=== PATIENT | female | born 1945 | race Caucasian/White ===

== ENCOUNTER → 2016-06-07 | Outpatient (CLI) | payer OTHER, MEDICARE ==
[~2016-06-07] MED LIST: ACET1TAB84 PO; ADVIN10/60 INH; ALBU1AER9; CALCTAB5 PO; CITRICEL; CLR10 PO; FERR160T PO; MULT-506 PO; PANT40TA PO; POLY335019 PO; SERT-234 PO; SIMV40TA2 PO; TRIATAB3 PO; ZNTT/150 PO
--- NOTE | 2016-06-07 14:15 | DIAGNOSTIC IMAGING REPORT ---
LEFT LOWER EXTREMITY VENOUS DOPPLER HISTORY: LEFT LEG PAIN AND SWELLING, R/O DVT COMPARISON STUDY: None. FINDINGS: There is normal compressibility, flow, and augmentation within the left lower extremity deep venous system. There is a thin elongated popliteal cyst measuring up to 5 cm in length. IMPRESSION: No DVT within the left lower extremity. Electronically signed by: Clemente Mejia M.D. 06/07/2016 2:13 PM Dictated Date/Time: 06/07/2016 2:13 PM
== END | disposition home or self-care (01) ==
LOC: C.ULTR 13:29
PROVIDERS: ATTEND Nurse Practitioner
DX: M79.662 Pain in left lower leg (principal); M79.89 Other specified soft tissue disorders

== ENCOUNTER → 2016-06-07 | Outpatient (CLI) | payer OTHER, MEDICARE ==
--- NOTE | 2016-06-07 16:08 | DIAGNOSTIC IMAGING REPORT ---
LEFT TIBIA/FIBULA 2 VIEWS ROUTINE CLINICAL HISTORY: Left lower leg pain and swelling COMPARISON: None. DISCUSSION: No fractures or dislocations are visualized. No erosive or destructive changes are evident. IMPRESSION: No fractures, or destructive lesions are visualized. Electronically signed by: Daniel Calles M.D. 06/07/2016 4:06 PM Dictated Date/Time: 06/07/2016 4:06 PM
== END | disposition home or self-care (01) ==
LOC: C.LABPVFM 15:49
PROVIDERS: ATTEND Nurse Practitioner
DX: M79.89 Other specified soft tissue disorders (principal); M79.662 Pain in left lower leg

== ENCOUNTER → 2016-06-24 | Outpatient (CLI) | payer OTHER, MEDICARE ==
[2016-06-24 14:11] LABS: ALT/SGPT 21 U/L (12-78); BLOOD UREA NITROGEN 16 mg/dl (7-18); BUN/CREATININE RATIO 24.4 (10-20); CALCIUM 9.3 mg/dl (8.5-10.1); CARBON DIOXIDE 28 mmol/L (21-32); CHLORIDE 103 mmol/L (98-107); CHOLESTEROL 201 mg/dl (0-200); CREATININE 0.66 mg/dl (0.60-1.20); GLUCOSE 85 mg/dl (70-99); POTASSIUM 3.8 mmol/L (3.5-5.1); SODIUM 140 mmol/L (136-145)
[2016-06-24 14:24] LABS: ALB/GLOB RATIO 1.2 (0.9-2); ALKALINE PHOSPHATASE 109 U/L (45-117); AST/SGOT 18 U/L (15-37); CHOLESTEROL/HDL RATIO 2.3; HDL CHOLESTEROL 88 mg/dl; LDL CHOLESTEROL CALCULATED 73 mg/dl; TRIGLYCERIDES 200 mg/dl (0-150); VERY LOW DENSITY LIPOPROT CALC 40 mg/dl
== END | disposition home or self-care (01) ==
LOC: C.LABPVFM 11:04
PROVIDERS: ATTEND Family Medicine
DX: E78.5 Hyperlipidemia, unspecified (principal); I10 Essential (primary) hypertension

== ENCOUNTER → 2016-07-05 | Outpatient (CLI) | payer OTHER, MEDICARE ==
--- NOTE | 2016-07-05 14:09 | MAMMOGRAPHY REPORT ---
BILATERAL DIGITAL SCREENING MAMMOGRAM WITH CAD: 07/05/2016 CLINICAL HISTORY: Routine screening. Patient has no complaints. TECHNIQUE: Current study was also evaluated with a Computer Aided Detection (CAD) system. Bilatera l CC and MLO views were obtained. COMPARISON: Comparison is made to exams dated: 07/03/2015 mammogram, 07/01/2014 mammogram, 07/01/2014 ultrasound, 06/23/2014 mammogram, 06/22/2013 mammogram, and 06/16/2012 mammogram - [facility]. BREAST COMPOSITION: The tissue of both breasts is heterogeneously dense, which may obscure small ma sses. FINDINGS: No suspicious masses, calcifications, or areas of architectural distortion are noted in e ither breast. There has been no significant interval change compared to prior exams. Bilateral ashwin gn-appearing calcifications are not significantly changed. IMPRESSION: ACR BI-RADS CATEGORY 2: BENIGN There is no mammographic evidence of malignancy. A 1 year screening mammogram is recommended. The p atient will receive written notification of the results. Approximately 10% of breast cancers are not detected with mammography. A negative mammographic repor t should not delay biopsy if a clinically suggestive mass is present. Della Chacon M.D. /:07/05/2016 09:03:31 Shift Supervisor Melting: Iman ANDERSON(Inocencia)(Jamshid), [facility] letter sent: Normal 1/2 BI-RADS Code: ACR BI-RADS Category 2: Benign
== END | disposition home or self-care (01) ==
LOC: C.MAMM 08:15
PROVIDERS: ATTEND Obstetrics & Gynecology
DX: Z12.31 Encounter for screening mammogram for malignant neoplasm of breast (principal)

== ENCOUNTER → 2016-10-24 | Outpatient (CLI) | payer OTHER, MEDICARE | END | disposition home or self-care (01) | LOC: C.LABPVFM 10:08 | PROVIDERS: ATTEND Family Medicine | DX: Z11.59 Encounter for screening for other viral diseases (principal) ==

== ENCOUNTER → 2017-02-25 | Outpatient (CLI) | payer OTHER, MEDICARE ==
[2017-02-25 18:04] LABS: BLOOD UREA NITROGEN 13 mg/dl (7-18); BUN/CREATININE RATIO 18.7 (10-20); CARBON DIOXIDE 29 mmol/L (21-32); CHLORIDE 104 mmol/L (98-107); CREATININE 0.67 mg/dl (0.60-1.20); GLUCOSE 104 mg/dl (70-99); POTASSIUM 3.5 mmol/L (3.5-5.1); SODIUM 138 mmol/L (136-145)
[2017-02-25 18:08] LABS: CHOLESTEROL 226 mg/dl (0-200); CHOLESTEROL/HDL RATIO 3.1; HDL CHOLESTEROL 74 mg/dl; LDL CHOLESTEROL CALCULATED 108 mg/dl; TRIGLYCERIDES 221 mg/dl (0-150); VERY LOW DENSITY LIPOPROT CALC 44 mg/dl
== END | disposition home or self-care (01) ==
LOC: C.LABPVFM 15:02
PROVIDERS: ATTEND Family Medicine
DX: E78.5 Hyperlipidemia, unspecified (principal); I10 Essential (primary) hypertension

== ENCOUNTER → 2017-08-21 | Outpatient (CLI) | payer OTHER, MEDICARE ==
[~2017-08-21] MED LIST changes: +RANI150T85 PO; -ZNTT/150 PO
[2017-08-21 14:39] LABS: ALBUMIN 4.1 gm/dl (3.4-5.0); ALT/SGPT 21 U/L (12-78); BLOOD UREA NITROGEN 14 mg/dl (7-18); CALCIUM 9.2 mg/dl (8.5-10.1); CARBON DIOXIDE 28 mmol/L (21-32); CHOLESTEROL 210 mg/dl (0-200); CREATININE 0.69 mg/dl (0.60-1.20); GLUCOSE 92 mg/dl (70-99); SODIUM 138 mmol/L (136-145)
[2017-08-21 14:42] LABS: ALKALINE PHOSPHATASE 94 U/L (45-117); AST/SGOT 20 U/L (15-37); LDL CHOLESTEROL CALCULATED 109 mg/dl; TOTAL PROTEIN 7.5 gm/dl (6.4-8.2)
== END | disposition home or self-care (01) ==
LOC: C.LABPVFM 09:29
PROVIDERS: ATTEND Family Medicine
DX: E78.5 Hyperlipidemia, unspecified (principal)

== ENCOUNTER → 2017-09-09 | Outpatient (CLI) | payer OTHER, MEDICARE ==
--- NOTE | 2017-09-10 15:29 | MAMMOGRAPHY REPORT ---
BILATERAL DIGITAL SCREENING MAMMOGRAM TOMOSYNTHESIS WITH CAD: 09/09/2017 CLINICAL HISTORY: Routine screening. Patient has no complaints. TECHNIQUE: Breast tomosynthesis in addition to standard 2D mammography was performed. Current study was also evaluated with a Computer Aided Detection (CAD) system. COMPARISON: Comparison is made to exams dated: 07/05/2016 mammogram, 07/03/2015 mammogram, 06/23/2014 ma mmogram, 06/22/2013 mammogram, 06/16/2012 mammogram, and 06/11/2011 mammogram - [facility] ter. BREAST COMPOSITION: The tissue of both breasts is heterogeneously dense, which may obscure small mas ses. FINDINGS: There is stable asymmetry in the lateral left breast. Mild vascular calcifications and sca ttered benign-appearing round microcalcifications bilaterally. No new suspicious mass, architectural distortion or cluster of microcalcifications is seen. IMPRESSION: ACR BI-RADS CATEGORY 1: NEGATIVE There is no mammographic evidence of malignancy. A 1 year screening mammogram is recommended. The pa tient will receive written notification of the results. Approximately 10% of breast cancers are not detected with mammography. A negative mammographic report should not delay biopsy if a clinically suggestive mass is present. Cherrie Rodriguez M.D. ay/:09/09/2017 16:33:37 Hair Boiler Operator: Xi MOLINA)(Jamshid), [facility] letter sent: Normal 1/2 BI-RADS Code: ACR BI-RADS Category 1: Negative
== END | disposition home or self-care (01) ==
LOC: C.MAMM 13:45
PROVIDERS: ATTEND Obstetrics & Gynecology
DX: Z12.31 Encounter for screening mammogram for malignant neoplasm of breast (principal)

== ENCOUNTER → 2017-09-16 | Outpatient (CLI) | payer OTHER, MEDICARE | END | disposition home or self-care (01) | LOC: C.MAMM 13:13 | PROVIDERS: ATTEND Family Medicine | DX: M85.88 Other specified disorders of bone density and structure, other site (principal); M85.851 Other specified disorders of bone density and structure, right thigh; M85.852 Other specified disorders of bone density and structure, left thigh ==

== ENCOUNTER → 2017-12-18 | Outpatient (CLI) | payer OTHER, MEDICARE ==
[2017-12-18 12:59] LABS: ALKALINE PHOSPHATASE 100 U/L (45-117); ALT/SGPT 23 U/L (12-78); AST/SGOT 17 U/L (15-37); BLOOD UREA NITROGEN 17 mg/dl (7-18); CALCIUM 8.7 mg/dl (8.5-10.1); CARBON DIOXIDE 28 mmol/L (21-32); CHOLESTEROL 194 mg/dl (0-200); CREATININE 0.73 mg/dl (0.60-1.20); GLUCOSE 86 mg/dl (70-99); LDL CHOLESTEROL CALCULATED 97 mg/dl; SODIUM 137 mmol/L (136-145); TOTAL PROTEIN 7.5 gm/dl (6.4-8.2)
== END | disposition home or self-care (01) ==
LOC: C.LABPVFM 10:19
PROVIDERS: ATTEND Family Medicine
DX: E78.01 Familial hypercholesterolemia (principal); E55.9 Vitamin D deficiency, unspecified

== ENCOUNTER 2019-06-04 09:45 | Inpatient (IN) ==
--- NOTE | 2019-05-14 15:35 | PAT Medication Instructions ---
Medication Instructions Date of Service May 14, 2019 Home Medications Medication Instructions Recorded albuterol sulfate 90 mcg/actuation 2 puffs INH Q6H PRN #8.5 gm 01/07/19 aerosol inhaler albuterol sulfate 90 mcg/actuation aerosol inhaler 2 puffs INH Q6H PRN Calcium 600 + D(3) 1 cap PO HS Premarin 0.625 mg VAGINAL WK cholecalciferol (vitamin D3) 2,000 units PO QAM fluticasone propion-salmeterol [Advair Diskus] 1 puff INHALATION BID loratadine 10 mg PO DAILY PRN naproxen sodium [Aleve] 220 mg PO Q8H PRN pantoprazole 40 mg PO QAM polyethylene glycol 3350 17 gm PO QAM sennosides [Senokot] 8.6 mg PO HS sertraline 150 mg PO HS simvastatin 40 mg PO HS triamterene-hydrochlorothiazid 1 tab PO QAM melatonin 5 mg PO HS PRN multivitamin 1 cap PO QAM omeprazole 40 mg PO HS Continue as directed Premarin 0.625 mg VAGINAL WK ASK your surgeon for instructions naproxen sodium [Aleve] 220 mg PO Q8H PRN DO NOT take the morning of surgery cholecalciferol (vitamin D3) 2,000 units PO QAM loratadine 10 mg PO DAILY PRN polyethylene glycol 3350 17 gm PO QAM triamterene-hydrochlorothiazid 1 tab PO QAM multivitamin 1 cap PO QAM Take morning of surgery With a small sip of water, OTHERWISE NOTHING TO EAT OR DRINK AFTER MIDNIGHT: albuterol sulfate 90 mcg/actuation aerosol inhaler 2 puffs INH Q6H PRN (use if needed; please bring with you to hospital day of surgery if possible) fluticasone propion-salmeterol [Advair Diskus] 1 puff INHALATION BID pantoprazole 40 mg PO QAM Take evening before surgery albuterol sulfate 90 mcg/actuation aerosol inhaler 2 puffs INH Q6H PRN (if needed) Calcium 600 + D(3) 1 cap PO HS fluticasone propion-salmeterol [Advair Diskus] 1 puff INHALATION BID loratadine 10 mg PO DAILY PRN (if needed) sennosides [Senokot] 8.6 mg PO HS sertraline 150 mg PO HS simvastatin 40 mg PO HS melatonin 5 mg PO HS PRN (if needed) omeprazole 40 mg PO HS Other Notes If you have any questions please call us at [phone] or [phone] or [phone] or [phone]
--- NOTE | 2019-05-17 09:38 | Anesthesiology Consultation ---
Date of Service May 17, 2019 Assessment & Plan (1) Encounter for pre-operative examination: - Awaiting review of preop testing (labs, EKG, CXR). Chart Review Chart Review: Patient seen in Pre Admission Testing Teaching & Discussion Pre-Anesthesia Teaching/Discussion Notes: Instructed NPO after midnight before surgery,except medications with 15 cc of water. Medication instructions provided according to the PAT guidelines. History Surgery Operation Date: 06/04/19 10:40 Proposed Procedures p Left Total Knee Arthroplasty - Joshua Tsai MD Height/Weight Height: 5 ft Weight: 72 kg Allergies Allergy/AdvReac Type Severity Reaction Status Date / Time EKG ADHESIVE PADS Allergy Unknown pruritus, Uncoded 05/17/19 09:50 redness Medications Home Medications Medication Instructions Recorded Confirmed Last Taken albuterol sulfate 90 mcg/actuation 2 puffs INH Q6H PRN #8.5 gm 01/07/19 05/14/19 Unknown aerosol inhaler Calcium 600 + D(3) 1 cap PO HS 04/22/19 05/14/19 04/28/19 Premarin 0.625 mg VAGINAL WK 04/22/19 05/14/19 04/28/19 cholecalciferol (vitamin D3) 2,000 units PO QAM 04/22/19 05/14/19 04/28/19 fluticasone propion-salmeterol 1 puff INHALATION BID 04/22/19 05/14/19 04/29/19 [Advair Diskus] loratadine 10 mg PO DAILY PRN 04/22/19 05/14/19 04/28/19 naproxen sodium [Aleve] 220 mg PO Q8H PRN 04/22/19 05/14/19 Unknown pantoprazole 40 mg PO QAM 04/22/19 05/14/19 04/28/19 polyethylene glycol 3350 17 gm PO QAM 04/22/19 05/14/19 Unknown sennosides [Senokot] 8.6 mg PO HS 04/22/19 05/14/19 04/28/19 sertraline 150 mg PO HS 04/22/19 05/14/19 04/28/19 simvastatin 40 mg PO HS 04/22/19 05/14/19 04/28/19 triamterene-hydrochlorothiazid 1 tab PO QAM 12/10/0405/14/19 04/28/19 melatonin 5 mg PO HS PRN 05/14/19 05/14/19 Unknown multivitamin 1 cap PO QAM 05/14/19 05/14/19 Unknown omeprazole 40 mg PO HS 05/14/19 05/14/19 Unknown Past Medical History Medical History Anxiety Arthritis Asthma stable Depression Gastritis GERD (gastroesophageal reflux disease) occasional Hiatal hernia HTN (hypertension) Hyperlipidemia Postmenopausal HRT (hormone replacement therapy) Sciatica Sleep apnea "mild"/no device prescribed Exercise / Class Metabolic Activity III < 4 Walking/Shop/Light housework Past Family History Family History Mother Hypertension Stroke Asthma Family history of reaction to anesthesia PONV Family history of diabetes mellitus Sister FH: pancreatic cancer Family history of diabetes mellitus Son No problems noted. Brother Family history of diabetes mellitus Other Coronary heart disease Parkinson disease Past Surgical History Surgical History H/O varicose vein ligation History of colonoscopy History of D&C History of esophagogastroduodenoscopy (EGD) History of gynecologic surgery combined A-P colporrhaphy for pelvic relaxation History of total knee arthroplasty Right TKA: 01/21/14: SAB at L3-L4 + PNB History of tubal ligation S/P NATHALY-BSO Past Anesthesia History No Hx of Anesthesia Complications and No Family Hx of Anesthesia Complications (except mother- PONV) History of PONV No Hx of PONV and No Hx of Motion Sickness Social History Smoking Status: Never smoker Do You Dip or Chew Tobacco: No Hx Alcohol Use: Yes Alcohol type: wine alcohol intake frequency: other Alcohol Intake Frequency Comment: ONCE A MONTH Hx Substance Use: No substance use type: does not use Review of Systems Reflux controlled. Patient denies chest pain, shortness of breath, cough, wheezing, palpitations. Physical Exam Vital Signs VITALS BP 123/72 P 59 TEMP 98.0 SP02 99%RA RESP 18 PHYSICAL Full neck and c-spine range of motion. Full TMJ range of motion. TMD 3 finger breaths Mallampati Score 3 Dentition: upper front partial Lungs: mild expiratory wheezes throughout Cardiac: regular rate and rhythm, no murmurs noted Spine: normal Carotid arteries: negative bruit Extremities: no edema
--- NOTE | 2019-05-17 10:32 | XRay Report ---
XR chest Pre-admission PA/Lat CLINICAL HISTORY: pt preoperative COMPARISON STUDY: 11/17/2012 FINDINGS: The bones soft tissues and hemidiaphragms are normal. The cardiomediastinal silhouette is n ormal. The lungs are clear. The pulmonary vasculature is normal. IMPRESSION: Negative chest. ACT 112: Negative or not required by law. The above report was generated using voice recognition software. It may contain grammatical, syntax or spelling errors. Electronically signed by: Kishan Maldonado M.D. 05/17/2019 10:31 AM
[2019-05-17 10:47] LABS: Basophils # (auto) 0.02 K/uL (0-0.2); Basophils % (auto) 0.4 %; Eosinophils # (auto) 0.15 K/uL (0-0.5); Eosinophils % (auto) 3.2 %; Hematocrit (blood only) 35.8 % (37-47); Hemoglobin 11.6 g/dL (12.0-16.0); Immature Granulocytes # (auto) 0.01 K/uL (0.00-0.02); Immature Granulocytes % (auto) 0.2 %; Lymphocytes # (auto) 1.44 K/uL (1.2-3.4); Lymphocytes % (auto) 30.8 %; Mean Corpuscular Hemoglobin 28.8 pg (25-34); Mean Corpuscular Hgb Conc 32.4 g/dL (32-36); Mean Corpuscular Volume 88.8 fL (80-100); Mean Platelet Volume 8.4 fL (7.4-10.4); Monocytes # (auto) 0.59 K/uL (0.11-0.59); Monocytes % (auto) 12.6 %; Neutrophils # (auto) 2.47 K/uL (1.4-6.5); Neutrophils % (auto) 52.8 %; Platelet Count 201 K/uL (130-400); RDW Coefficient of Variation 13.2 % (11.5-14.5); RDW Standard Deviation 42.9 fL (36.4-46.3); Red Blood Count 4.03 M/uL (4.2-5.4); White Blood Count 4.68 K/uL (4.8-10.8)
[2019-05-17 10:54] LABS: BUN Creatinine Ratio 28.1 (10-20); C Reactive Protein 0.87 mg/dl (0-0.29); Calcium 9.6 mg/dl (8.5-10.1); Creatinine Clr Calc Pharmacy 72.5 ml/min; Est GFR (African American) 104.6; Est GFR (Non-African American) 90.2; Potassium 3.9 mmol/L (3.5-5.1)
[2019-05-17 11:02] LABS: Partial Thromboplastin Ratio 0.9; Partial Thromboplastin Time 24.9 Seconds (21.0-31.0)
--- NOTE | 2019-05-29 14:11 | History and Physical Report ---
DATE OF ADMISSION: 06/04/2019 CHIEF COMPLAINT: Left knee pain and discomfort. HISTORY OF PRESENT ILLNESS: The patient is a 73-year-old female who presents for surgical treatment of her left knee. She does have a history of right knee replacement done in 01/2014. She has done well from this. She continues to be limited by left knee pain at this time. She has been through extensive conservative treatment which has become less successful over time. She has had injections in the knee which initially helped quite a bit, but became less successful. She takes anti-inflammatories with minimal relief. Pain is mostly medial, but some global pain. The more she walks, the more it hurts. She has nighttime pain. She has difficulty going up and down steps. She would like to have her left knee replaced. PAST MEDICAL HISTORY: 1. Hypertension. 2. Elevated cholesterol. 3. Asthma. 4. Arthritis. 5. Gastroesophageal reflux disease. 6. Hiatal hernia. 7. Mild obesity with a BMI of 31. PAST SURGICAL HISTORY: Include right knee replacement done 01/21/2014. ALLERGIES: None. CURRENT MEDICINES: Include: 1. Albuterol. 2. Calcium with vitamin D. 3. Premarin. 4. Fluticasone Diskus. 5. Loratadine. 6. Naproxen. 7. Pantoprazole. 8. Polyethylene glycol. 9. Senokot. 10. Sertraline. 11. Simvastatin. 12. Triamterene/hydrochlorothiazide. SOCIAL HISTORY: Significant for 73-year-old white female. She lives in [place]. She is . FAMILY HISTORY: Noncontributory. REVIEW OF HISTORY: Negative for diabetes, neurologic problems, vascular problems or bleeding disorders. Denies any chest pain or shortness of breath. No history of DVT or PE. No known bleeding problems. PHYSICAL EXAMINATION: GENERAL: Reveals a healthy, pleasant middle-aged female. Looks to be in pretty good health. HEENT: Benign. NECK: Supple with no lymphadenopathy. LUNGS: Clear to auscultation. HEART: Has a regular rate and rhythm. ABDOMEN: Soft, nontender, nondistended. EXTREMITIES: Grossly neurovascularly intact except as follows. Examination of the knee reveals patient ambulates independently. She has a slight varus alignment to her knee. She has got bony hypertrophy medially. She has a small knee effusion. She is tender over the medial joint line. Range of motion is about 5 degrees, show full extension to 125 degrees of flexion, but there is no instability. No pain with hip motion. Examination of the right knee reveals a well-healed incision. Alignment looks anatomic. No swelling. Range of motion 0-120. No instability. X-RAYS: X-rays of the left knee reviewed. Shows advanced left knee medial compartment DJD. She had complete loss of medial joint space. She has got osteophytes off the medial femoral condyle and medial tibial plateau. ASSESSMENT: A 73-year-old white female status post a right knee replacement done a little over 5 years ago with left knee degenerative joint disease. She has failed conservative treatment and would like to have her left knee replaced. PLAN: We will take her to the operating room and do a left total knee replacement. The risks and benefits of this procedure were explained to the patient, include but not limited to DVT, PE, , infection, neurological injury, vascular injury, bleeding problem, pain, limited range of motion, stiffness, failure to relieve her symptoms, incomplete relief of symptoms, need for further surgery in future, fracture, leg length inequality, nerve palsy, persistent pain, etc. The patient understands and desires to proceed. As far as discharge plans, she is planning to be discharged to home using [facility].
[~2019-06-04 09:45] MED LIST changes: -ACET1TAB84 PO; +ACETAMINOPHEN 500 MG TAB PO SCH; -ADVIN10/60 INH; -ALBU1AER9; +BUPIVACAINE 0.5 % 5 MG/1 ML PF 10ML VIAL ONE; +BUPIVACAINE LIPOSOME/PF 266 MG, BUPIVACAINE/EPINEPHRINE 50 ML, SODIUM CHLORIDE 0.9% 30 ... INFIL SCH; -CALCTAB5 PO; +CEFAZOLIN 2000MG 2,000 MG/15 ML SYR IV SCH; -CITRICEL; -CLR10 PO; +FAMOTIDINE 20 MG TAB PO SCH; -FERR160T PO; +GABAPENTIN 300 MG CAP PO SCH; +LR 500ML BOLUS, THEN 15ML/HR IV SCH; +LR 60ML/HR IV SCH; +METOCLOPRAMIDE HCL 10 MG TABLET PO SCH; -MULT-506 PO; -PANT40TA PO; -POLY335019 PO; -RANI150T85 PO; +ROPIVACAINE 0.5% 5 MG/ML 30 ML VIAL ONE; +SCOPOLAMINE 1.5 MG TDSY TD SCH; -SERT-234 PO; -SIMV40TA2 PO; +TRANEXAMIC ACID 1,000 MG **IV Intra-op IV SCH; -TRIATAB3 PO
[2019-06-04] MEDS ORDERED: fentaNYL citrate 100 MCG/2 ML VIAL ONE (10:04)
[2019-06-04] MEDS ORDERED: MIDAZOLAM HCL 1 MG/ML 2ML VIAL ONE ×2 (10:04→10:05)
--- NOTE | 2019-06-04 10:22 | History & Physical Bridge Note ---
Date of Service June 04, 2019 History & Physical Bridge Note I have examined the patient, reviewed the History & Physical and in the interval since the performance of the History & Physical I have noted the following changes of clinical significance: no changes noted
[2019-06-04] MEDS ORDERED: SODIUM CHLORIDE 0.9% PF 50 ML VIAL ONE (10:28)
[2019-06-04] MEDS ORDERED: BUPIVACAINE LIPOSOME 1.3% 266 MG/20 ML VIAL ONE ×2 (10:28→11:56)
[2019-06-04] MEDS ORDERED: BACITRACIN INJ 50,000 UNIT VIAL ONE (10:28)
[2019-06-04] MEDS ORDERED: BUPIVACAINE/EPINEPHRINE 0.25% 1:200,000 30 ML VIAL ONE (10:28)
[2019-06-04] MEDS ORDERED: TRANEXAMIC ACID / 0.7% NACL 1000MG/100ML BAG IV ONE (10:34)
[2019-06-04] MEDS ORDERED: PHENYLEPHRINE 100MCG/ML 5ML SYR IV PRN (10:41)
[2019-06-04] MEDS ORDERED: LABETALOL HCL IV 5 MG/ML 20ML IV PRN (10:41)
[2019-06-04] MEDS ORDERED: MEPERIDINE HCL 25 MG/ML CARP IV PRN (10:41)
[2019-06-04] MEDS ORDERED: HYDROmorphone INJ 1 MG/ML SYRINGE IV PRN (10:41)
[2019-06-04] MEDS ORDERED: ePHEDrine sulfate 50 MG/ML AMP IV PRN (10:41)
[2019-06-04] MEDS ORDERED: ATROPINE SULFATE 0.1 MG/ML 10ML SYR IV PRN (10:41)
[2019-06-04] MEDS ORDERED: ONDANSETRON INJ 2 MG/ML 2 ML VIAL IV PRN ×2 (10:41→15:55)
[2019-06-04] MEDS ORDERED: fentaNYL citrate 100 MCG/2 ML VIAL IV PRN (10:41)
[2019-06-04] MEDS ORDERED: DEXAMETHASONE SOD INJ 4 MG/ML VIAL ONE (13:01)
[2019-06-04] MEDS ORDERED: ONDANSETRON INJ 2 MG/ML 2 ML VIAL ONE (13:01)
[2019-06-04] MEDS ORDERED: PROPOFOL IV EMULSION 10 MG/ML 20 ML VIAL IV ONE (13:01)
[2019-06-04] MEDS ORDERED: MoRPHine SULFATE 2 MG/ML CARP ONE (13:23)
--- NOTE | 2019-06-04 14:05 | Post Operative Brief Note ---
PG Immediate Post Op with CF Date of Surgery June 04, 2019 Pre & Post Diagnosis Operation Date: 06/04/19 12:30 Pre-Op Diagnosis: Left Knee Degenerative Joint Disease Post-Op Diagnosis: Left Knee Degenerative Joint Disease I identified the patient and participated in the time-out.: Yes Procedure Operation Date: 06/04/19 12:30 Actual Procedures p Left Total Knee Arthroplasty(Left) - Joshua Tsai MD Surgeon Joshua Tsai MD Tailor Fitter Deidre, PAC Estimated Blood Loss 50 Findings Consistent with Post-Op Diagnosis Fluids 1700 cc Specimens Specimen Description: A: left knee bone and tissue Drains Good Catheter Anesthesia Type Spinal MAC Complications none Disposition Accompanied Patient To Recovery: No Disposition: Recovery Room
--- NOTE | 2019-06-04 14:37 | XRay Report ---
XR knee LT 1 or 2V routine CLINICAL HISTORY: Surgical Post Op postoperative evaluation COMPARISON: 06/07/2016 DISCUSSION: Anatomic alignment posttotal left knee arthroplasty. Good contact between prosthetic and underlying bone. Expected soft tissue postoperative change IMPRESSION: Anatomic alignment posttotal left knee arthroplasty. ACT 112: Negative or not required by law. The above report was generated using voice recognition software. It may contain grammatical, syntax or spelling errors. Electronically signed by: Kishan Maldonado M.D. 06/04/2019 2:35 PM
--- NOTE | 2019-06-04 14:52 | Anesthesiology Progress Note ---
Date of Service June 04, 2019 Anesthesia Post Procedure Vital Signs Vital Signs: Temp Pulse Pulse Resp BP Pulse Ox 06/04/19 14:45 36.4 C L 64 15 126/97 95 06/04/19 14:35 67 16 129/63 93 06/04/19 14:25 72 16 128/67 98 06/04/19 14:15 36.2 C L 74 16 142/102 H 99 06/04/19 10:46 37 C 77 18 145/83 H 99 Pain Intensity Left Knee: Pain Intensity: 5 Transfer of Care Handoff Completed per policy Notes Mental Status: alert / awake / arousable Patient Amnestic to Procedure: Yes Nausea / Vomiting: adequately controlled Pain: adequately controlled Airway Patency, RR, SpO2: stable & adequate BP & HR: stable & adequate Hydration State: stable & adequate Neuraxial Anesthesia: was administered and sensory block is resolving Anesthetic Complications: no major complications apparent
[2019-06-04] MEDS ORDERED: ALUMINUM/MAGNESIUM SUSP 30 ML UDC PO PRN (15:55)
[2019-06-04] MEDS ORDERED: bisacodyL 10 MG SUPP PR PRN (15:55)
[2019-06-04] MEDS ORDERED: NALOXONE HCL 0.4 MG/1 ML VIAL/CARP IV PRN (15:55)
[2019-06-04] MEDS ORDERED: METOCLOPRAMIDE HCL INJ 5 MG/ML 2 ML VIAL IV PRN (15:55)
[2019-06-04] MEDS ORDERED: HYDROmorphone INJ 0.5 MG/0.5 ML SYR IV PRN (15:55)
[2019-06-04] MEDS ORDERED: MAGNESIUM HYDROXIDE SUSP 30 ML UDC PO PRN (15:55)
[2019-06-04] MEDS ORDERED: NON-FORMULARY MEDICATION (Melatonin 5 MG) PO PRN (15:55)
[2019-06-04] MEDS ORDERED: ALBUTEROL HFA 8 GM INHALER INH PRN (16:01)
[2019-06-04] MEDS ORDERED: LORATADINE 10 MG TAB PO PRN (16:02)
[2019-06-04] MEDS: CHECK SCOPOLAMINE PATCH PLACEMENT SCH (16:10)
--- NOTE | 2019-06-04 17:52 | Operative Report ---
Post Operative Report Pre & Post Diagnosis Operation Date: 06/04/19 12:30 Pre-Op Diagnosis: Left Knee Degenerative Joint Disease Post-Op Diagnosis: Left Knee Degenerative Joint Disease I identified the patient and participated in the time-out.: Yes Procedure Operation Date: 06/04/19 12:30 Actual Procedures p Left Total Knee Arthroplasty(Left) - Joshua Tsai MD Surgeon Joshua Tsai MD Tanbark Peeler Deidre, PAC Estimated Blood Loss 50 Findings Consistent with Post-Op Diagnosis Operative findings revealed advanced left knee DJD with extensive grade 4 [id number] and eburnation changes of the medial femoral condyle medial till plateau. She had spotty grade 4 changes of the patellofemoral joint as well as the lateral compartment. She had a varus deformity to her knee with a moderate to large knee joint effusion. Fluids 1700 cc Specimens Left knee sent for pathology. Drains None. Anesthesia Type Spinal MAC Complications none Disposition Accompanied Patient To Recovery: No Disposition: Recovery Room Indications Patient is a 73-year-old female is had a long history of knee problems. She underwent a right knee replacement little over 5 years ago and is done well from this. Over the past several years she developed increased pain discomfort in the left knee. Is been unresponsive conservative treatment. X-ray showed advanced DJD and she elected proceed with surgical treatment. Description of Procedure Operative implants consisted of: 1. Biomet Vanguard size 62.5 left posterior stabilized femoral component. 2. Biomet size 67 tibial tray. 3. 10 mm posterior box polyethylene insert. 4. 25 x 8 all poly-patella. Patient was taken to the operating room identified and placed on the operating table supine position protectors were properly padded. IV antibiotics provided by the anesthesia team. Spinal anesthetic and abductor canal block had been provided in the holding area. Good catheter was placed in a sterile fashion. A left thigh tip was then placed in the left lower extremities and prepped and draped in usual sterile fashion. The left leg was elevated and exsanguinated with use of an Esmarch and turns placed at 300 mmHg. An anterior approach to the left knee was then performed to longitudinal incision centered over the patella. Sharp dissection was cut through subcutaneous tissue down below the extensor mechanism. A medial parapatellar arthrotomy incision was made. Some subperiosteal dissection was carried out medially. The fat pad was dissected from each patella tendon. Lateral patellofemoral ligament was released. Patella was subluxated laterally and the knee was flexed. The osteophytes were taken off the distal femur. The ACL and PCL were then released from the distal femur and the tibia subluxated anteriorly. The external tibial alignment jig was then placed in the interface the tibia and adjusted 14 mm medially. The proximal tibia was cut that to take about a millimeter off the most efficient aspect of the medial tibial plateau. The tibia sized to a size 67. Some osteophytes were taken off medial and posterior medially. Attention then drawn to the femur. The distal femur was entered with a sharp drill. Intramedullary canal was suction. A left 5 degree valgus cutting guide was placed. Distal femoral cutting block was pinned in place and a distal femoral cut was made to take an additional 3 mm of bone off distal femur. The femur was then sized to a 62.5. We did downsize this slightly. The AP cutting block was pinned parallel to the epicondylar axis which was 5 degrees of external rotation. The anterior cut, anterior chamfer, posterior cut, posterior chamfer cuts were made. Box cutting guide was placed in just slight lateral box cut was made. The knee was flexed for the remnants of the medial lateral menisci were excised. The osteophytes were taken off the posterior aspect the femur. A trial femoral component was placed. The tibial tray was pinned in maximum external rotation and the drill and stem punch we used to create defect in the proximal tip for the tibial tray. The knee was then trialed the 10 mm insert fit most appropriately. Attention drawn the patella. The patella was cleaned of all soft tissues. Patella thickness measured 18 mm in thickness was cut down to 11. Was sized to a size 25 patella. Locals were drilled for the 25 patella. The lateral osteophyte is moved. Patella button was placed. Knee was taken through range of motion patella tracked nicely with no thumbs test. Attention drawn to place the permanent components. All trial components removed. Bone plug was placed in the distal femur limit blood loss put a double batch Palacos G cement was mixed. Biom[employer] Medicalguard size 62.5 left posterior measurement component, size 67 tibial tray, 10 mm posterior box polyethylene insert, and a 25 x 8 all poly-patella were then cemented in place. Knee was brought out in full extension until cement hardened. Final cement check was then performed. The pericapsular tissues were injected with total of 100 cc of combination of 20 cc of Exparel, 30 cc normal saline, 50 cc of quarter percent Marcaine with epinephrine. Patient did receive 1 g of tranexamic acid per the tourniquet was then let down for final tourniquet time of 54 minutes. Hemostasis assured use electrocautery. Wounds once again irrigated. Extensor macros then closed with combination 1 PDS suture #1 Vicryl suture in [id number] fashion. Extensor mechanism was checked and found to be intact the subcutaneous tissue then closed with 2 Dexon suture in a buried knot fashion skin was closed skin zenaida. Leg was then cleaned dried and sterile dressing composed of Xeroform, 4 x 4's, sterile cast padding, and an William bandage were applied. The patient then transferred to the recovery in stable condition. The patient tolerated the procedure well no complications. I attest to the content of the Intraoperative Record and any orders documented therein. Any exceptions are noted below.
[2019-06-04] MEDS: SODIUM CHLORIDE 0.9% 1000ML 1,000 ML IV SCH (18:19)
[2019-06-04] MEDS: FERROUS GLUCONATE 324 MG TAB PO SCH (18:30)
[2019-06-04] MEDS: KETOROLAC TROMETHAMINE 15 MG/ML VIAL IV SCH ×2 (18:30→23:55)
[2019-06-04] MEDS: ASCORBIC ACID 500 MG TAB PO SCH (18:30)
[2019-06-04] MEDS: CEFAZOLIN 1000MG 1,000 MG/7.5 ML SYR IV SCH (19:31)
[2019-06-04] MEDS ORDERED: TRANEXAMIC ACID / 0.7% NACL 1,000 MG/100 ML BAG IV SCH (20:00)
[2019-06-04] MEDS ORDERED: SENNA 8.6 MG TAB PO SCH (21:00)
[2019-06-04] MEDS: DOCUSATE SODIUM 100 MG CAP PO SCH (21:28)
[2019-06-04] MEDS: ACETAMINOPHEN 500 MG TAB PO SCH (21:28)
[2019-06-04] MEDS: ASPIRIN 81 MG ECTAB PO SCH (21:29)
[2019-06-04] MEDS: SENNA 8.6 MG TAB PO SCH (21:29)
[2019-06-04] MEDS: PANTOprazole 40 MG TAB PO SCH (21:29)
[2019-06-04] MEDS: CALCIUM 600MG + VIT D 400 IU TAB PO SCH (21:29)
[2019-06-04] MEDS: SIMVASTATIN 40 MG TAB PO SCH (21:30)
[2019-06-05] MEDS: CHECK SCOPOLAMINE PATCH PLACEMENT SCH (00:40)
[2019-06-05] MEDS: CEFAZOLIN 1000MG 1,000 MG/7.5 ML SYR IV SCH (03:09)
[2019-06-05] MEDS: ACETAMINOPHEN 500 MG TAB PO SCH ×3 (04:59→21:00)
[2019-06-05] MEDS: KETOROLAC TROMETHAMINE 15 MG/ML VIAL IV SCH ×3 (05:00→17:39)
[2019-06-05] MEDS: SODIUM CHLORIDE 0.9% 1000ML 1,000 ML IV SCH (05:01)
[2019-06-05 06:44] LABS: Hematocrit (blood only) 30.4 % (37-47); Hemoglobin 10.1 g/dL (12.0-16.0); Mean Corpuscular Hemoglobin 28.9 pg (25-34); Mean Corpuscular Hgb Conc 33.2 g/dL (32-36); Mean Corpuscular Volume 87.1 fL (80-100); Mean Platelet Volume 8.6 fL (7.4-10.4); Platelet Count 164 K/uL (130-400); RDW Coefficient of Variation 13.1 % (11.5-14.5); RDW Standard Deviation 41.9 fL (36.4-46.3); Red Blood Count 3.49 M/uL (4.2-5.4)
[2019-06-05 07:18] LABS: BUN Creatinine Ratio 20.8 (10-20); Calcium 8.4 mg/dl (8.5-10.1); Creatinine Clr Calc Pharmacy 56.7 ml/min; Est GFR (Non-African American) 74.2; Potassium 3.8 mmol/L (3.5-5.1)
[2019-06-05] MEDS: FLUTICASONE/VILANTEROL 100/25MCG 14 PUFFS/INHALER INH SCH (08:21)
[2019-06-05] MEDS: FERROUS GLUCONATE 324 MG TAB PO SCH ×2 (08:22→17:40)
[2019-06-05] MEDS: ASCORBIC ACID 500 MG TAB PO SCH ×2 (08:22→17:40)
[2019-06-05] MEDS: TRIAMTERENE/HCTZ 37.5/25MG TAB PO SCH (08:23)
[2019-06-05] MEDS: PANTOprazole 40 MG TAB PO SCH ×2 (08:23→21:02)
[2019-06-05] MEDS: ASPIRIN 81 MG ECTAB PO SCH ×2 (08:23→21:02)
[2019-06-05] MEDS: CHOLECALCIFEROL 1,000 UNITS TAB PO SCH (08:23)
[2019-06-05] MEDS: SERTRALINE HCL 100 MG TABLET PO SCH (08:23)
[2019-06-05] MEDS: MULTIVITAMIN TAB PO SCH (08:24)
[2019-06-05] MEDS: DOCUSATE SODIUM 100 MG CAP PO SCH ×2 (08:24→21:03)
[2019-06-05] MEDS: POLYETHYLENE (MIRALAX) 17 GM PACK PO SCH (08:24)
[2019-06-05] MEDS ORDERED: MULTIVITAMIN TAB PO SCH (09:00)
[2019-06-05] MEDS ORDERED: NON-FORMULARY MEDICATION (Melatonin 5 MG) PO PRN (09:04)
--- NOTE | 2019-06-05 09:51 | Progress Note ---
DATE: 06/05/2019 SUBJECTIVE: A 73-year-old white female postop day 1 from a left knee replacement. She is doing well. Pain is controlled. Had good night. No chest pain or shortness of breath. Not feeling dizzy or lightheaded. OBJECTIVE: VITAL SIGNS: Temperature 36.7. Vital signs stable. GENERAL: Shows a pleasant, middle-aged female. She is sitting up in bed, looks comfortable. She is talking on the phone when I went in to visit her this morning. LUNGS: Clear to auscultation. HEART: Has a regular rate and rhythm. ABDOMEN: Soft, nontender, nondistended. EXTREMITIES: Grossly neurovascularly intact except as follows: Examination of the left leg reveals the dressing to be clean, dry and intact. She can dorsiflex and plantarflex her foot appropriately. She is neurologically intact. LABORATORY DATA: Hemoglobin 10.1. Hematocrit 30.4. Electrolytes are stable. ASSESSMENT: A 73-year-old white female postop day 1 from left knee replacement, doing pretty well. Pain is controlled. She is slightly anemic, but asymptomatic. PLAN: 1. DVT prophylaxis including thigh-high TEDs, SCDs, and aspirin twice a day. 2. PT/OT. Weight bear as tolerated. Left total knee protocol. 3. Pain control, doing well with current pain regimen. 4. Anemia. She is asymptomatic. We will continue iron supplementation. 5. Disposition: Plan to discharge to home with some home health once adequately recovered and medically stable.
[2019-06-05] MEDS: TRAMADOL HCL 50 MG TABLET PO PRN ×2 (15:28→20:58)
[2019-06-05] MEDS: SENNA 8.6 MG TAB PO SCH (21:00)
[2019-06-05] MEDS: SIMVASTATIN 40 MG TAB PO SCH (21:03)
[2019-06-05] MEDS: CALCIUM 600MG + VIT D 400 IU TAB PO SCH (21:04)
[2019-06-06] MEDS: KETOROLAC TROMETHAMINE 15 MG/ML VIAL IV SCH ×2 (00:40→05:46)
[2019-06-06] MEDS: ACETAMINOPHEN 500 MG TAB PO SCH (05:48)
[2019-06-06] MEDS: FLUTICASONE/VILANTEROL 100/25MCG 14 PUFFS/INHALER INH SCH (07:21)
[2019-06-06] MEDS: PANTOprazole 40 MG TAB PO SCH (07:22)
[2019-06-06] MEDS: TRIAMTERENE/HCTZ 37.5/25MG TAB PO SCH (07:22)
[2019-06-06] MEDS: SERTRALINE HCL 100 MG TABLET PO SCH (07:23)
[2019-06-06] MEDS: FERROUS GLUCONATE 324 MG TAB PO SCH (07:23)
[2019-06-06] MEDS: MULTIVITAMIN TAB PO SCH (07:23)
[2019-06-06] MEDS: CHOLECALCIFEROL 1,000 UNITS TAB PO SCH (07:23)
[2019-06-06] MEDS: POLYETHYLENE (MIRALAX) 17 GM PACK PO SCH (07:23)
[2019-06-06] MEDS: ASCORBIC ACID 500 MG TAB PO SCH (07:24)
[2019-06-06] MEDS: DOCUSATE SODIUM 100 MG CAP PO SCH (07:24)
[2019-06-06] MEDS: ASPIRIN 81 MG ECTAB PO SCH (07:26)
[2019-06-06] MEDS ORDERED: TRAMADOL HCL 50 MG HOME PACK PO ONE (10:02)
[2019-06-06] MEDS: TRAMADOL HCL 50 MG TABLET PO PRN (11:24)
--- NOTE | 2019-06-06 12:26 | Progress Note ---
DATE: 06/06/2019 SUBJECTIVE: A 73-year-old female postop day 2 from a left knee replacement. She is doing pretty well. Therapy has gone well. Some pain, but controlled with meds. No chest pain or shortness of breath. Not feeling dizzy or lightheaded. OBJECTIVE: VITAL SIGNS: Temperature 37.0. Vital signs stable. GENERAL: Shows a pleasant, middle-aged female. She is sitting up in bed, looks comfortable this morning. EXTREMITIES: Examination of the left leg reveals it to be well aligned. Dressing is clean and dry and intact. Maybe just a trace bit of bloody drainage anteriorly. Calf is soft and supple. She is neurologically intact. ASSESSMENT: A 73-year-old female postop day 2 from left knee replacement, doing well. Pain is controlled. She is neurologically intact. PLAN: 1. DVT prophylaxis including thigh-high TEDs, SCDs and aspirin twice a day. 2. PT/OT. Weight bear as tolerated. Left total knee protocol. 3. Pain control, doing pretty well with current pain regimen. 4. Disposition. Plan to discharge to home with some home health later today.
--- NOTE | 2019-06-07 20:05 | Discharge Summary ---
ADMITTING PHYSICIAN AND SURGEON: Dr. Joshua Tsai. ADMITTING DIAGNOSIS: Left knee degenerative joint disease. SURGERY PERFORMED: Left total knee arthroplasty. SECONDARY DIAGNOSES: Hypertension, elevated cholesterol, asthma, arthritis, gastroesophageal reflux disease, hiatal hernia, mild obesity. CONSULTS: None obtained. HISTORY AND PHYSICAL EXAMINATION: Well documented in the patient's chart. HOSPITAL COURSE: The patient was admitted on 06/04/2019, underwent total knee arthroplasty, tolerated the procedure well. There were no complications. She was transferred to the PACU postoperatively and later to the orthopedic floor for further care. She was given Ancef for antibiotic prophylaxis, MIRYAM stockings, SCDs and aspirin for DVT prophylaxis. Hemoglobin, hematocrit and vital signs were monitored during her hospital stay and remained stable. She did not require any blood transfusions. There were no complications. By postoperative day 2, she was tolerating a regular diet, pain was controlled with oral pain medicine. She was participating in physical therapy. Postop day 2, she was discharged home, set up with home health services. She was given printed discharge instructions as well as new prescriptions for extra strength Tylenol, aspirin and tramadol. Continue her home medicines. Continue physical therapy, weightbearing as tolerated, MIRYAM stockings. Follow up approximately 2 weeks postoperatively or sooner if there are any problems or concerns.
[2019-06-09] MEDS ORDERED: PREMARIN VAG CRM 14 APPLN/30 GM TUBE PV SCH (21:00)
== END 2019-06-06 11:36 | disposition home health service (06) | DRG 470 ==
LOC: ASU 09:45 → 3E 14:09